=== PATIENT | male | born 1975 ===

== ENCOUNTER → 2017-10-12 | Outpatient (REF) | payer BC | LOC: M LAB REF 17:30 | DX: J02.9 Acute pharyngitis, unspecified (principal) | CPT/HCPCS: 87081 ==

== ENCOUNTER → 2018-09-27 | Outpatient (REF) | payer BC | LOC: M LAB REF 10:12 | PROVIDERS: ATTEND Physician Assistant Medical | DX: J02.9 Acute pharyngitis, unspecified (principal) ==